=== PATIENT | male | born 1955 | race Caucasian/White ===

== ENCOUNTER 2017-06-23 11:28 | Emergency (ER) | payer MEDICAID ==
[~2017-06-23] VITALS: Ht 182.9 cm; Wt 80.9 kg
[2017-06-23 11:28] VITALS: Ht 182.9 cm; Wt 80.9 kg
[2017-06-23] MEDS ORDERED: ONDANSETRON 4 MG INJ IV STA (11:31)
[2017-06-23 12:04] LABS: CALCIUM 8.7 mg/dl (8.4-10.2); CREATININE 1.05 mg/dl (0.61-1.24); POTASSIUM 3.7 mmol/L (3.5-5.1)
[2017-06-23 12:15] LABS: TROPONIN-I 0.027 ng/ml (0.00-0.12)
[2017-06-23 12:42] LABS: BASOPHILS % 0.7 % (0.0-2.0); EOSINOPHILS # 0.1 10^3/ul (0.0-0.5); EOSINOPHILS % 1.6 % (0.0-7.0); HEMOGLOBIN 10.2 g/dl (14.0-18.0); LYMPHOCYTES # 1.3 10^3/ul (0.8-2.9); LYMPHOCYTES % 30.3 % (15.0-51.0); MEAN CORPUSCULAR HEMOGLOBIN 27.1 pg (29.0-33.0); MEAN CORPUSCULAR HGB CONC 31.9 g/dl (32.0-37.0); MEAN CORPUSCULAR VOLUME 85.1 fl (82.0-101.0); MEAN PLATELET VOLUME 11.3 fl (7.4-10.4); MONOCYTE # 0.5 10^3/ul (0.3-0.9); MONOCYTES % 11.7 % (0.0-11.0); NEUTROPHIL # 2.4 10^3/ul (1.6-7.5); NEUTROPHILS % 55.5 % (39.0-77.0); PLATELET COUNT 256 10^3/UL (140-415); RED BLOOD COUNT 3.76 10^6/ul (4.70-6.10); RED CELL DISTRIBUTION WIDTH 12.8 % (11.5-14.5); WHITE BLOOD COUNT 4.3 10^3/ul (4.8-10.8)
[2017-06-23 12:44] VITALS: BP 119/97; RESP 18
--- NOTE | 2017-06-23 12:47 | ERA ---
ER Documentation Chief Complaint Date/Time DATE: 06/23/17 TIME: 12:44 Chief Complaint dizziness s/p abd pain/feeling of having a BM. Was pale/diaphoretic now res HPI This is a 61-year-old male with a history of a heart failure who does have a left ventricular assist device presents to the emergency room after being brought in from home for evaluation of dizziness and weakness. The patient felt that he was can have a bowel movement and did bear down. He said he felt weak at that time his family called EMS. When EMS arrived they stated this patient was diaphoretic and a transfer the patient to the emergency room. In the emergency room this patient is denying any pain, states that his symptoms are completely resolved. He states that he is on a transplant list for his heart and gets his care out of [facility] ROS All systems reviewed and are negative except as per history of present illness. PMhx/Soc History of Surgery: Yes (HEART SX.LVAD PLACEMENT) Anesthesia Reaction: No Hx Neurological Disorder: No Hx Respiratory Disorders: No Hx Cardiac Disorders: No Hx Psychiatric Problems: No Hx Miscellaneous Medical Probl: No Hx Alcohol Use: Yes (OCC) Hx Substance Use: No Hx Tobacco Use: No Smoking Status: Never smoker Physical Exam Vitals Vital Signs Date Time Temp Pulse Resp B/P Pulse Ox O2 Delivery O2 Flow Rate FiO2 06/23/17 11:28 97.8 78 12 109/106 98 Physical Exam INITIAL VITAL SIGNS: Reviewed by me GENERAL: The patient is well developed and appropriate for usual state of health in no apparent distress HEENT: Mucous membranes, pupils equal, round, and reactive to light. EOMI. There is no scleral icterus. NECK: C-spine is soft and supple, there is no meningismus. There is no cervical lymphadenopathy. LUNGS: Clear to auscultation bilaterally. There are no rales, wheezes or rhonchi. HEART: Machine like murmur, left ventricular assist device in place ABDOMEN: Soft, non-tender, non-distended. There are bowel sounds in all four quadrants. No rebound or guarding. EXTREMITIES: There is no peripheral cyanosis or edema. No focal swelling or erythema. NEUROLOGICAL: The patient moves all four extremities with 5/5 strength. Cranial nerves II - XII are intact. Normal gait. Alert and oriented SKIN: There is no apparent rash or petechiae. HEME/LYMPHATIC: There is no evidence of excessive bruising or lymphedema. PSYCHIATRIC: The patient does not appear anxious or depressed. Result Diagram: 06/23/17 1136 06/23/17 1136 Results 24 hrs Laboratory Tests Test 06/23/17 11:36 White Blood Count 4.310^3/ul Red Blood Count 3.7610^6/ul Hemoglobin 10.2g/dl Hematocrit 32.0% Mean Corpuscular Volume 85.1fl Mean Corpuscular Hemoglobin 27.1pg Mean Corpuscular Hemoglobin Concent 31.9g/dl Red Cell Distribution Width 12.8% Platelet Count 43649^3/UL Mean Platelet Volume 11.3fl Neutrophils % 55.5% Lymphocytes % 30.3% Monocytes % 11.7% Eosinophils % 1.6% Basophils % 0.7% Nucleated Red Blood Cells % 0.0/100WBC Neutrophils # 2.410^3/ul Lymphocytes # 1.310^3/ul Monocytes # 0.510^3/ul Eosinophils # 0.110^3/ul Basophils # 0.010^3/ul Nucleated Red Blood Cells # 0.010^3/ul Sodium Level 141mmol/L Potassium Level 3.7mmol/L Chloride Level 106mmol/L Carbon Dioxide Level 28mmol/L Anion Gap 11 Blood Urea Nitrogen 25mg/dl Creatinine 1.05mg/dl Glucose Level 105mg/dl Calcium Level 8.7mg/dl Troponin I 0.027ng/ml Current Medications Medications (Trade) Dose Ordered Sig/Tiara Route PRN Reason Start Time Stop Time Status Last Admin Dose Admin Ondansetron HCl (Zofran Inj) 4 mg ONCE STAT IV 06/23/17 11:31 06/23/17 11:32 DC Procedures/MDM EKG: Rate/Rhythm: [Normal Sinus Rhythm] QRS, ST, T-waves: [No changes consistent w/ acute ischemia] Impression: [No evidence of ischemia or arrhythmia] This 61-year-old male presents to the ER for evaluation of weakness, dizziness. The patient felt like she was going to have a bowel movement and was feeling extremely weak. The patient's family called EMS. When I evaluated the patient in the emergency room he is hemodynamically stable. The patient did have a left ventricular assist device. Lab work was obtained on this patient and an EKG was also obtained which is normal given his LVAD. This patient stated that he did not want a chest x-ray. He said he was feeling much better and would like to go home. I advised against leaving at this time given the fact we do not have any of the patient's blood work back. The patient was adamant on going home and states that he is feeling better and does not need to be in the emergency room. I discussed the risks of leaving including the risk of in this patient did verbalize understanding. This patient does have capacity to make medical decisions at this time. I did advise the patient to return to the emergency room at any point for reevaluation if he were to develop any weakness and he verbalized understanding. Patient will be discharged AGAINST MEDICAL ADVICE at this time. Against Medical Advice Note The patient verbalized understanding of risks of signing out against medical advice including and disability. The patient explained to me the reason for wanting to sign out against medical advice, he does not think he has an emergency. The patient is alert and oriented x 3 with decisional capacity and competence to sign out. They were welcomed to come back to ER and will be going home with discharge paperwork. Departure Diagnosis: Primary Impression: Dizziness Additional Impression: Left ventricular assist device present Condition: Serious CURTISJASWINDER MORELOS Jun 23, 2017 12:47
== END 2017-06-23 13:44 | disposition left against medical advice (07) ==
LOC: E/R 11:28
DX: R42 Dizziness and giddiness (principal); Z95.811 Presence of heart assist device
CPT/HCPCS: 36415; 80048; 84484; 85025; 93005; Z7502